=== PATIENT | female | born 1960 | race Caucasian/White ===

== ENCOUNTER → 2016-06-06 | Outpatient (CLI) | payer BC ==
[2016-06-06 12:43] LABS: HEMOGLOBIN 14.5 gm/dl (12.3-15.3); RED BLOOD COUNT 4.83 M/UL (4.00-5.10); WHITE BLOOD COUNT 6.7 K/UL (4.5-11.0)
[2016-06-06 13:01] LABS: BUN/CREATININE RATIO 16 (0-10)
== END ==
LOC: LAB 12:11 → EROP 12:11
PROVIDERS: Family Medicine
DX: Z01.818 Encounter for other preprocedural examination (principal); I10 Essential (primary) hypertension; E78.5 Hyperlipidemia, unspecified
CPT/HCPCS: 80048; 85025; 85610; 85730; 93005

== ENCOUNTER → 2016-06-15 | Outpatient (CLI) | payer BC | LOC: MAMO 09:04 | DX: Z12.31 Encounter for screening mammogram for malignant neoplasm of breast (principal); E78.00 Pure hypercholesterolemia, unspecified; Z79.899 Other long term (current) drug therapy | CPT/HCPCS: 36415; 80061; G0202 ==

== ENCOUNTER → 2016-09-06 | Outpatient (CLI) | payer BC | LOC: RAD 11:54 | DX: M54.9 Dorsalgia, unspecified (principal); M51.06 Intervertebral disc disorders with myelopathy, lumbar region; M41.87 Other forms of scoliosis, lumbosacral region | CPT/HCPCS: 72110 ==

== ENCOUNTER → 2016-09-06 | Outpatient (CLI) | payer BC | LOC: EROP 14:17 | DX: M54.9 Dorsalgia, unspecified (principal) | CPT/HCPCS: 96372; J1885 ==

== ENCOUNTER → 2020-06-27 | Outpatient (CLI) | payer BC, OTHER ==
[~2020-06-27] MED LIST: AUGMENTIN 875-1 EACH PO; CEFUROXIME500 MG PO; NEO-SYNEPHRINE15 M2; SALINE NOSE SPR45 ML
[2020-06-27 07:50] LABS: HEMOGLOBIN 12.4 gm/dl (12.3-15.3); RED BLOOD COUNT 4.36 M/UL (4.00-5.10)
[2020-06-27 08:09] LABS: BUN/CREATININE RATIO 12 (0-10)
[2020-06-28 09:15] LABS: FREE THYROXINE INDEX 2.5 (1.2-4.9); THYROXINE (T4) 9.1 ug/dL (4.5-12.0)
== END ==
LOC: LAB 06:40
PROVIDERS: Family Medicine
DX: E78.5 Hyperlipidemia, unspecified (principal)
CPT/HCPCS: 80053; 80061; 84436; 84443; 84479; 85025

== ENCOUNTER → 2020-07-05 | Outpatient (CLI) | payer BC, OTHER | LOC: MAMO 07:40 | DX: Z12.31 Encounter for screening mammogram for malignant neoplasm of breast (principal) | CPT/HCPCS: 77063; 77067 ==

== ENCOUNTER → 2020-07-07 | Outpatient (CLI) | payer BC, OTHER | LOC: RAD 08:11 | DX: M79.642 Pain in left hand (principal); M79.641 Pain in right hand; M19.042 Primary osteoarthritis, left hand; M19.041 Primary osteoarthritis, right hand | CPT/HCPCS: 73130 ==

== ENCOUNTER → 2020-07-28 | Outpatient (CLI) | payer BC, OTHER | LOC: LAB 08:16 | DX: E05.90 Thyrotoxicosis, unspecified without thyrotoxic crisis or storm (principal) | CPT/HCPCS: 84439; 84443 ==

== ENCOUNTER → 2020-09-21 | Outpatient (CLI) | payer BC, OTHER ==
[2020-09-21 08:13] LABS: HEMOGLOBIN 12.8 gm/dl (12.3-15.3); RED BLOOD COUNT 4.44 M/UL (4.00-5.10); WHITE BLOOD COUNT 4.1 K/UL (4.5-11.0)
[2020-09-21 08:54] LABS: BUN/CREATININE RATIO 12 (0-10)
[2020-09-22 08:13] LABS: FREE THYROXINE INDEX 2.6 (1.2-4.9); THYROXINE (T4) 9.6 ug/dL (4.5-12.0)
== END ==
LOC: LAB 07:39
PROVIDERS: Family Medicine
DX: E78.5 Hyperlipidemia, unspecified (principal)
CPT/HCPCS: 80053; 80061; 84436; 84443; 84479; 85025

== ENCOUNTER → 2021-03-14 | Outpatient (CLI) | payer BC ==
[2021-03-14 08:54] LABS: HEMOGLOBIN 13.3 gm/dl (12.3-15.3); RED BLOOD COUNT 4.55 M/UL (4.00-5.10)
[2021-03-14 09:17] LABS: BUN/CREATININE RATIO 17 (0-10)
== END ==
LOC: LAB 08:10
PROVIDERS: Family Medicine
DX: I10 Essential (primary) hypertension (principal)
CPT/HCPCS: 80053; 80061; 84439; 84443; 85025

== ENCOUNTER → 2021-04-11 | Outpatient (CLI) | payer BC | LOC: LAB 08:51 | DX: E05.90 Thyrotoxicosis, unspecified without thyrotoxic crisis or storm (principal) | CPT/HCPCS: 83520; 84439; 84443; 84445 ==

== ENCOUNTER → 2021-04-13 | Outpatient (CLI) | payer BC | LOC: EROP 08:37 | DX: Z20.822 Contact with and (suspected) exposure to COVID-19 (principal) | CPT/HCPCS: U0002 ==

== ENCOUNTER → 2021-04-20 | Outpatient (CLI) | payer OTHER | LOC: EROP 10:20 | DX: Z20.822 Contact with and (suspected) exposure to COVID-19 (principal) | CPT/HCPCS: U0002 ==

== ENCOUNTER → 2021-08-10 | Outpatient (CLI) | payer BC | LOC: LAB 07:43 | PROVIDERS: Family Medicine | DX: E04.1 Nontoxic single thyroid nodule (principal) | CPT/HCPCS: 83520; 84439; 84443; 84445 ==

== ENCOUNTER → 2021-09-12 | Outpatient (CLI) | payer BC ==
[2021-09-12 08:11] LABS: HEMOGLOBIN 13.6 gm/dl (12.3-15.3); RED BLOOD COUNT 4.52 M/UL (4.00-5.10); WHITE BLOOD COUNT 5.1 K/UL (4.5-11.0)
[2021-09-12 08:21] LABS: BUN/CREATININE RATIO 16 (0-10)
== END ==
LOC: LAB 07:33
PROVIDERS: Family Medicine
DX: I10 Essential (primary) hypertension (principal)
CPT/HCPCS: 80053; 80061; 84439; 84443; 85025

== ENCOUNTER → 2021-12-11 | Outpatient (CLI) | payer BC | LOC: LAB 08:14 | PROVIDERS: Nurse Practitioner Family | DX: E04.1 Nontoxic single thyroid nodule (principal) | CPT/HCPCS: 83520; 84439; 84443; 84445 ==